=== PATIENT | female | born 1930 | race Caucasian/White ===

== ENCOUNTER 2020-01-22 10:56 | Emergency (ER) | payer OTHER ==
[~2020-01-22] VITALS: Ht 165.1 cm; Wt 69.0 kg
[2020-01-22] MEDS ORDERED: LIPITOR40 MG PO (11:58)
[2020-01-22] MEDS ORDERED: ASA81BEC PO (11:58)
[2020-01-22] MEDS ORDERED: OCUVITE TABLET1 EAC1 PO (11:59)
[2020-01-22] MEDS ORDERED: LASIX 40 MG TAB40 MG PO (11:59)
[2020-01-22] MEDS ORDERED: PROAIR HFA8.5 GM INH (11:59)
[2020-01-22] MEDS ORDERED: DILTIAZEM ER180 M2 PO (11:59)
[2020-01-22] MEDS ORDERED: PROPRANOLOL 8080 MG PO (12:00)
[2020-01-22] MEDS ORDERED: GLIPIZIDE 10 MG10 MG PO (12:01)
[2020-01-22] MEDS ORDERED: XARELTO15 MG PO (12:01)
[2020-01-22] MEDS ORDERED: VITAMIN D32000 UNI2 PO (12:01)
[2020-01-22 12:02] LABS: ABSOLUTE NEUTROPHILS 5.9 thou/uL (1.4-8.2); BASOPHILS 0.9 % (0.0-2.0); HEMATOCRIT 33.4 % (37.0-47.0); HEMOGLOBIN 10.8 gm/dL (12.0-15.0); LYMPHOCYTES 24.8 % (24.0-44.0); MCH 26.4 pg (26.0-34.0); MCHC 32.4 g/dL (28.0-37.0); MCV 81.4 fL (80.0-100.0); MONOCYTES 7.5 % (1.0-8.0); PLATELET COUNT 240 thou/uL (150-400); POLYS 61.8 % (36.0-66.0); RDW 18.6 % (10.5-14.5); WBC 9.6 thou/uL (4.0-11.0)
[2020-01-22 12:32] LABS: ANION GAP 11 mmol/L (7-16); BUN 44 mg/dL (7-18); CHLORIDE 106 mmol/L (98-107); CO2 23 mmol/L (21-32); CREATININE 1.9 mg/dL (0.6-1.0); GLUCOSE 99 mg/dL (74-106); POTASSIUM 4.9 mmol/L (3.5-5.1); SODIUM 140 mmol/L (136-145)
[2020-01-22 12:36] LABS: ALBUMIN 3.4 g/dL (3.4-5.0); DIRECT BILIRUBIN < 0.1 mg/dL (<0.1-0.2); SGOT 23 U/L (15-37); SGPT 17 U/L (30-65); TOTAL BILIRUBIN 0.5 mg/dL (<0.1-1.0); TOTAL PROTEIN 6.9 g/dL (6.4-8.2)
[2020-01-22 13:11] LABS: URINE BILIRUBIN NEGATIVE (Negative); URINE BLOOD TRACE (Negative); URINE CLARITY CLEAR; URINE COLOR YELLOW; URINE GLUCOSE-RANDOM* NEGATIVE (Negative); URINE KETONES NEGATIVE (Negative); URINE LEUKOCYTES-REFLEX NEGATIVE (Negative); URINE NITRITE-REFLEX NEGATIVE (Negative); URINE PROTEIN (DIPSTICK) NEGATIVE (Negative); URINE UROBILINOGEN 0.2 E.U./dl (0.2-1.0)
[2020-01-22 13:32] LABS: ANISOCYTOSIS 2+; PLATELET ESTIMATE NORMAL
[2020-01-22 15:15] VITALS: BP 150/78
== END 2020-01-22 15:15 | disposition home or self-care (01) ==
LOC: ER 10:56
PROVIDERS: Emergency Medicine
DX: E16.2 Hypoglycemia, unspecified (principal); R41.82 Altered mental status, unspecified; F17.210 Nicotine dependence, cigarettes, uncomplicated; Z79.899 Other long term (current) drug therapy; Z79.82 Long term (current) use of aspirin